=== PATIENT | male | born 1990 | race Caucasian/White ===

== ENCOUNTER 2024-10-16 20:36 | Emergency (ER) | payer OTHER ==
[~2024-10-16] VITALS: Ht 185.4 cm; Wt 79.4 kg
[2024-10-16 20:44] VITALS: BP 127/74; TEMP 98.5; O2SAT 98
== END 2024-10-16 22:00 | disposition home or self-care (01) ==
LOC: ER 20:46
DX: S01.01XA Laceration without foreign body of scalp, initial encounter (principal); W22.8XXA Striking against or struck by other objects, initial encounter; Y93.89 Activity, other specified; Y92.813 Airplane as the place of occurrence of the external cause; Y99.8 Other external cause status